=== PATIENT | male | born 1930 | race Caucasian/White ===

== ENCOUNTER 2017-03-29 23:59 | Inpatient (IN) ==
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
[2017-03-30] MEDS ORDERED: MAGNESIUM HYDROXIDE 30 ML ORAL.SUSP PO PRN (01:21)
[2017-03-30] MEDS ORDERED: NALOXONE HCL 0.4 MG/ML VIAL IV PRN (01:21)
[2017-03-30] MEDS ORDERED: ONDANSETRON 4 MG/2 ML VIAL IV PRN (01:21)
[2017-03-30] MEDS ORDERED: DOCUSATE SODIUM 100 MG CAPSULE PO PRN (01:21)
[2017-03-30] MEDS: DEXTROSE 5%-1/2NS 1,000 ML IV SCH ×2 (02:10→11:34)
[2017-03-30 02:29] LABS: Basophils # (Auto) 0 K/mcL (0.0-0.3); Basophils % (Auto) 0.4 % (0.0-2.0); Eosinophils # (Auto) 0.1 K/mcL (0.0-0.7); Eosinophils % (Auto) 0.8 % (0.0-7.0); Granulocytes % (Auto) 84.3 % (38.0-78.0); Lymphocytes # (Auto) 0.7 K/mcL (1.5-4.8); Lymphocytes % (Auto) 9.7 % (15.5-49.0); Mean Cell Volume 89.2 fL (80.0-100.0); Mean Corpuscular HGB Conc 33.6 g/dL (31.0-36.0); Monocytes # (Auto) 0.4 K/mcL (0.1-0.9); Monocytes % (Auto) 4.8 % (1.0-12.0); Platelet Count 173 K/mcL (140-440); RBC 4.62 M/mcL (4.50-5.90); Red Cell Distribution Width 15.8 % (11.5-14.5)
[2017-03-30 02:53] LABS: ALT/SGPT 27 U/l (0-40); Albumin 3.2 gm/dL (3.2-5.2); Albumin/Globulin Ratio 1.1 (1.0-2.3); Alkaline Phosphatase 168 U/L (39-117); Bilirubin,Direct < 0.2 mg/dL (0.0-0.3); Blood Urea Nitrogen 9 mg/dl (8-23); Gamma Glutamyl Transpeptidase 77 U/L (8-61); Uric Acid 4.1 mg/dL (2.5-8.0)
[2017-03-30 06:22] LABS: Appearance,Urine HAZY; Bacteria,Urine 4+ /hpf (0); Bilirubin,Urine NEG (NEG); Color,Urine YELLOW; Glucose,Urine (UA) NEGATIVE (NEG); Leukocyte Esterase,Urine 500 /uL (NEG); Mucus,Urine MANY /hpf (0); Nitrate,Urine POS (NEG); Protein,Urine NEG (NEG); Specific Gravity,Urine 1.021 (1.000-1.035); Urine Blood NEG mg/dL (<0.03); Urine Hyaline Cast 16 /lpf (0-2); Urine RBC 12 /hpf (0-1); Urine Squamous Epithelial Cell 1 /hpf (0-4); Urine WBC 78 /hpf (0-4)
[2017-03-30] MEDS: 0.9 % SODIUM CHLORIDE 10 ML SYRINGE IV SCH ×3 (06:24→22:04)
[2017-03-30] MEDS: HEPARIN 5,000 UNIT/ML VIAL SQ SCH ×2 (09:01→22:03)
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
[2017-03-30] MEDS: CIPROFLOXACIN 400 MG/200 ML BAG IV SCH ×2 (11:33→22:04)
--- NOTE | 2017-03-30 18:50 | XRay Report ---
CLINICAL INFORMATION: Trauma COMPARISON: AP film from yesterday FINDINGS: There are severe degenerative change in the acromioclavicular joint and moderate degenerative changes glenohumeral joint. No fracture identified. Soft tissues are normal. IMPRESSION: No evidence of fracture. Degenerative change Interpreted and Authenticated by: Dio Madrigal 03/30/17
--- NOTE | 2017-03-30 18:55 | XRay Report ---
CLINICAL INFORMATION: Trauma COMPARISON: None. FINDINGS: No acute fracture evident. There is a malunified old fracture the ulnar aspect of the distal radius which is creating mild incongruity in the radiocarpal articulating surface. Mild radiocarpal STT and moderate first CMC degenerative change appreciated. There also appears to be mild deformity of the dorsal triquetrum on lateral view which likely indicates a malunified old fracture. IMPRESSION: 1. No acute fracture identified. 2. 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 3. Degenerative change 4. Malunified old fracture of the dorsal triquetrum Interpreted and Authenticated by: Dio Madrigal 03/30/17
[2017-03-31] MEDS: DEXTROSE 5%-1/2NS 1,000 ML IV SCH ×4 (02:58→16:00)
[2017-03-31] MEDS: 0.9 % SODIUM CHLORIDE 10 ML SYRINGE IV SCH ×3 (06:58→22:45)
[2017-03-31] MEDS: CIPROFLOXACIN 400 MG/200 ML BAG IV SCH ×2 (08:26→20:55)
[2017-03-31] MEDS: HEPARIN 5,000 UNIT/ML VIAL SQ SCH ×2 (08:26→20:55)
[2017-03-31 10:05] LABS: Basophils # (Auto) 0 K/mcL (0.0-0.3); Basophils % (Auto) 0.2 % (0.0-2.0); Eosinophils # (Auto) 0 K/mcL (0.0-0.7); Eosinophils % (Auto) 0.3 % (0.0-7.0); Granulocytes % (Auto) 88.7 % (38.0-78.0); Lymphocytes # (Auto) 0.4 K/mcL (1.5-4.8); Lymphocytes % (Auto) 3.6 % (15.5-49.0); Mean Cell Volume 90.4 fL (80.0-100.0); Mean Corpuscular HGB Conc 33.2 g/dL (31.0-36.0); Monocytes # (Auto) 0.8 K/mcL (0.1-0.9); Monocytes % (Auto) 7.2 % (1.0-12.0); Platelet Count 167 K/mcL (140-440); RBC 4.86 M/mcL (4.50-5.90)
[2017-03-31 10:27] LABS: ALT/SGPT 25 U/l (0-40); Albumin 3.1 gm/dL (3.2-5.2); Albumin/Globulin Ratio 1.1 (1.0-2.3); Alkaline Phosphatase 175 U/L (39-117); Bilirubin,Direct 0.3 mg/dL (0.0-0.3); Blood Urea Nitrogen 11 mg/dl (8-23); Gamma Glutamyl Transpeptidase 80 U/L (8-61); Uric Acid 4.2 mg/dL (2.5-8.0)
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
--- NOTE | 2017-03-31 17:18 | Cat Scan Report ---
CLINICAL INFORMATION: Dizziness and nausea after closed head injury headache COMPARISON: 08/17/2014 TECHNIQUE: 2.5 mm helical slices were obtained in the skull base to vertex. Following reconstruction, axial reformatted images were reviewed at bone and parenchymal windows. FINDINGS: The ventricles, sulci, fissures, and cisterns are symmetrically enlarged compatible with moderate age-related atrophy. This has progressed from the previous study. There is no subdural hemorrhage or other extra-axial fluid collection appreciated. Patchy chronic ischemic changes in the deep cerebral white matter shows slight progression. There is no acute cerebral hemorrhage, mass effect or edema. A 6 mm remote lacunar infarct in the left joan and a few remote lacunar infarcts in the basal ganglia are appreciated. Bone windows show no osseous abnormality IMPRESSION: Moderate atrophy and chronic ischemic changes in deep cerebral white matter with remote lacunar infarcts in the basal ganglia and left joan. There is no intracerebral hemorrhage or other acute posttraumatic change. Moderate cerumen noted in the right external auditory meatus Interpreted and Authenticated by: Dio Madrigal 03/31/17
--- NOTE | 2017-03-31 17:27 | Ultrasound Report ---
CLINICAL INFORMATION: Right upper quadrant pain after fall increased LFTs COMPARISON: None. FINDINGS: Examination is very technically difficult due to patient's body habitus. The right hepatic lobe is incompletely visualized but the visualized liver is unremarkable. Common bile duct cannot be visualized. Gallbladder not visualized. The aorta, IVC and pancreas and spleen are all normal. Both kidneys are unremarkable with exception of a few simple cysts IMPRESSION: Normal exam - no significant abnormality. History of acute renal failure is acknowledged - consider abdomen and pelvic CT without contrast if there is concern about significant abdominal organ injury Interpreted and Authenticated by: Dio Madrigal 03/31/17
[2017-04-01] MEDS: DEXTROSE 5%-1/2NS 1,000 ML IV SCH ×2 (02:08→14:54)
[2017-04-01] MEDS: 0.9 % SODIUM CHLORIDE 10 ML SYRINGE IV SCH ×3 (06:30→20:45)
[2017-04-01 07:44] LABS: Basophils # (Auto) 0 K/mcL (0.0-0.3); Basophils % (Auto) 0.2 % (0.0-2.0); Eosinophils # (Auto) 0 K/mcL (0.0-0.7); Eosinophils % (Auto) 0.3 % (0.0-7.0); Granulocytes % (Auto) 86.6 % (38.0-78.0); Lymphocytes # (Auto) 0.5 K/mcL (1.5-4.8); Lymphocytes % (Auto) 3.5 % (15.5-49.0); Mean Cell Volume 89.6 fL (80.0-100.0); Mean Corpuscular HGB Conc 33.6 g/dL (31.0-36.0); Mean Corpuscular Hemoglobin 30.1 pg (26.0-34.0); Monocytes # (Auto) 1.3 K/mcL (0.1-0.9); Monocytes % (Auto) 9.4 % (1.0-12.0); Platelet Count 148 K/mcL (140-440); RBC 4.67 M/mcL (4.50-5.90); Red Cell Distribution Width 15.8 % (11.5-14.5)
[2017-04-01 07:56] LABS: ALT/SGPT 21 U/l (0-40); Albumin 2.6 gm/dL (3.2-5.2); Alkaline Phosphatase 170 U/L (39-117); Bilirubin,Direct 0.4 mg/dL (0.0-0.3); Blood Urea Nitrogen 19 mg/dl (8-23); Gamma Glutamyl Transpeptidase 77 U/L (8-61); Magnesium 1.9 mg/dL (1.6-2.5); Uric Acid 4.7 mg/dL (2.5-8.0)
[2017-04-01] MEDS: ACETAMINOPHEN 325 MG TABLET PO PRN ×2 (09:15→19:20)
[2017-04-01] MEDS: CIPROFLOXACIN 400 MG/200 ML BAG IV SCH (09:16)
[2017-04-01] MEDS: HEPARIN 5,000 UNIT/ML VIAL SQ SCH ×2 (09:16→20:44)
--- NOTE | 2017-04-01 09:22 | XRay Report ---
CLINICAL INFORMATION: Pneumonia TECHNIQUE: Upright AP portable chest x-ray COMPARISON: Chest x-rays dated 08/17/2014 and 10/27/2007 FINDINGS: No change in left transvenous pacemaker lead. Focal left basilar density. The left heart order and diaphragm are partially preserved. Appearance is consistent with left lower lobe infiltrate. PA and lateral chest x-ray recommended when clinically appropriate. Right lung is negative. No parenchymal infiltrate or mass. No evidence for congestive heart failure or pulmonary congestion. IMPRESSION: Left lower lobe infiltrate consistent with pneumonia. Recommend PA and lateral chest x-ray when clinically appropriate Interpreted and Authenticated by: Dio Oshea 04/01/17
[2017-04-01] MEDS ORDERED: VANCOMYCIN PER PHARMACY IV SCH (11:16)
[2017-04-01] MEDS ORDERED: VANCOMYCIN 1,000 MG in 0.9 % SODIUM CHLORIDE 250 ML IV ONE (11:30)
[2017-04-01] MEDS: CEFEPIME 2 GM in DEXTROSE 5% IN WATER 50 ML IV SCH (13:27)
[2017-04-01 14:42] LABS: Appearance,Urine CLEAR; Bacteria,Urine 0 /hpf (0); Bilirubin,Urine NEG (NEG); Color,Urine YELLOW; Glucose,Urine (UA) 50 mg/dL (NEG); Leukocyte Esterase,Urine NEG /uL (NEG); Mucus,Urine FEW /hpf (0); Nitrate,Urine NEG (NEG); Protein,Urine NEG (NEG); Specific Gravity,Urine 1.008 (1.000-1.035); Urine Blood 0.2 mg/dL (<0.03); Urine RBC 3 /hpf (0-1); Urine Squamous Epithelial Cell 0 /hpf (0-4); Urine WBC 1 /hpf (0-4); Urobilinogen,Urine NEG (NEG)
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
[2017-04-02] MEDS: DEXTROSE 5%-1/2NS 1,000 ML IV SCH ×3 (00:51→23:27)
[2017-04-02] MEDS: 0.9 % SODIUM CHLORIDE 10 ML SYRINGE IV SCH ×3 (05:57→21:41)
[2017-04-02 07:29] LABS: Basophils # (Auto) 0 K/mcL (0.0-0.3); Basophils % (Auto) 0.2 % (0.0-2.0); Eosinophils # (Auto) 0 K/mcL (0.0-0.7); Eosinophils % (Auto) 0.5 % (0.0-7.0); Granulocytes % (Auto) 84.3 % (38.0-78.0); Lymphocytes # (Auto) 0.7 K/mcL (1.5-4.8); Lymphocytes % (Auto) 7.2 % (15.5-49.0); Mean Cell Volume 89.2 fL (80.0-100.0); Mean Corpuscular HGB Conc 34.4 g/dL (31.0-36.0); Mean Corpuscular Hemoglobin 30.7 pg (26.0-34.0); Monocytes # (Auto) 0.7 K/mcL (0.1-0.9); Monocytes % (Auto) 7.8 % (1.0-12.0); Platelet Count 147 K/mcL (140-440); RBC 4.38 M/mcL (4.50-5.90); Red Cell Distribution Width 15.8 % (11.5-14.5)
[2017-04-02 07:44] LABS: ALT/SGPT 17 U/l (0-40); Albumin 2.2 gm/dL (3.2-5.2); Albumin/Globulin Ratio 0.8 (1.0-2.3); Alkaline Phosphatase 157 U/L (39-117); Bilirubin,Direct 0.3 mg/dL (0.0-0.3); Blood Urea Nitrogen 19 mg/dl (8-23); Gamma Glutamyl Transpeptidase 72 U/L (8-61); Magnesium 1.9 mg/dL (1.6-2.5); Uric Acid 4.3 mg/dL (2.5-8.0)
[2017-04-02] MEDS: HYDROcodone/APAP 5/325MG TABLET PO PRN ×3 (09:58→23:26)
[2017-04-02] MEDS: HEPARIN 5,000 UNIT/ML VIAL SQ SCH ×2 (09:59→21:40)
[2017-04-02] MEDS: CEFEPIME 2 GM in DEXTROSE 5% IN WATER 50 ML IV SCH (10:05)
[2017-04-02 11:51] LABS: Vancomycin,Random 7.4 ug/ml
[2017-04-02] MEDS ORDERED: VANCOMYCIN 1,000 MG in 0.9 % SODIUM CHLORIDE 250 ML IV SCH (13:00)
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
[2017-04-02] MEDS ORDERED: TAMSULOSIN 0.4 MG CAPSULE PO SCH (21:00)
[2017-04-02] MEDS ORDERED: SIMVASTATIN 20 MG TABLET PO SCH (21:00)
[2017-04-03] MEDS: 0.9 % SODIUM CHLORIDE 10 ML SYRINGE IV SCH (05:24)
[2017-04-03 05:59] LABS: Basophils # (Auto) 0 K/mcL (0.0-0.3); Basophils % (Auto) 0.5 % (0.0-2.0); Eosinophils # (Auto) 0.1 K/mcL (0.0-0.7); Eosinophils % (Auto) 1.8 % (0.0-7.0); Granulocytes % (Auto) 75.9 % (38.0-78.0); Lymphocytes # (Auto) 0.8 K/mcL (1.5-4.8); Lymphocytes % (Auto) 13.7 % (15.5-49.0); Mean Cell Volume 89.3 fL (80.0-100.0); Mean Corpuscular HGB Conc 33.8 g/dL (31.0-36.0); Mean Corpuscular Hemoglobin 30.2 pg (26.0-34.0); Monocytes # (Auto) 0.5 K/mcL (0.1-0.9); Monocytes % (Auto) 8.1 % (1.0-12.0); Platelet Count 152 K/mcL (140-440); RBC 4.31 M/mcL (4.50-5.90); Red Cell Distribution Width 15.7 % (11.5-14.5)
[2017-04-03 06:43] LABS: ALT/SGPT 19 U/l (0-40); Albumin 2.2 gm/dL (3.2-5.2); Albumin/Globulin Ratio 0.9 (1.0-2.3); Alkaline Phosphatase 169 U/L (39-117); Bilirubin,Direct < 0.2 mg/dL (0.0-0.3); Blood Urea Nitrogen 18 mg/dl (8-23); Gamma Glutamyl Transpeptidase 84 U/L (8-61); Magnesium 1.7 mg/dL (1.6-2.5); Uric Acid 4.1 mg/dL (2.5-8.0)
[2017-04-03] MEDS: HEPARIN 5,000 UNIT/ML VIAL SQ SCH (08:57)
[2017-04-03] MEDS ORDERED: [UNRECOGNIZED DRUG - OTHER] PO SCH (09:00)
[2017-04-03] MEDS ORDERED: LACTOBACILLUS 1 CAPSULE PO SCH (09:00)
[2017-04-03] MEDS ORDERED: FISH OIL 1,000 MG CAPSULE PO SCH (09:00)
[2017-04-03] MEDS ORDERED: ASPIRIN 81 MG TAB.CHEW PO SCH (09:00)
[2017-04-03] MEDS: CEFEPIME 2 GM in DEXTROSE 5% IN WATER 50 ML IV SCH (09:28)
[2017-04-03] MEDS ORDERED: LISINOPRIL 5 MG TABLET PO SCH (09:49)
[2017-04-03] MEDS ORDERED: VITAMIN D3 1,000 UNIT TABLET PO SCH (09:49)
[2017-04-03] MEDS ORDERED: [UNRECOGNIZED DRUG - REMARK] PO SCH (09:50)
[2017-04-03] MEDS ORDERED: VANCOMYCIN 1,000 MG in 0.9 % SODIUM CHLORIDE 250 ML IV SCH (10:00)
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
[2017-04-03] MEDS ORDERED: FINASTERIDE 5 MG TABLET PO SCH (21:00)
[2017-04-03] MEDS ORDERED: [UNRECOGNIZED DRUG - OTHER] PO SCH (21:00)
== END 2017-04-03 11:25 | DRG 689 ==
LOC: ED 23:59 → MEDSUR 23:59
PROVIDERS: ADMIT Internal Medicine; ATTEND Internal Medicine